=== PATIENT | female | born 2000 | race African-American/Black ===

== ENCOUNTER 2021-01-31 22:41 | Emergency (ER) | payer BC ==
[~2021-01-31] VITALS: Ht 160 cm; Wt 54.9 kg
[2021-02-01 00:18] LABS: ABSOLUTE NEUTROPHILS 2.4 thou/uL (1.4-8.2); BASOPHILS 0.5 % (0.0-2.0); EOSINOPHILS 2.1 % (0.0-3.0); HEMATOCRIT 37.4 % (37.0-47.0); HEMOGLOBIN 11.5 gm/dL (12.0-15.0); LYMPHOCYTES 46.5 % (24.0-44.0); MCH 24.1 pg (26.0-34.0); MCHC 30.8 g/dL (28.0-37.0); MCV 78.1 fL (80.0-100.0); MONOCYTES 10.3 % (1.0-8.0); PLATELET COUNT 269 thou/uL (150-400); POLYS 40.6 % (36.0-66.0); RBC 4.79 mil/uL (4.20-5.00); RDW 14.4 % (10.5-14.5); WBC 5.8 thou/uL (4.0-11.0)
[2021-02-01 00:19] LABS: CALCIUM 8.7 mg/dL (8.5-10.1); CREATININE 0.9 mg/dL (0.6-1.0); POTASSIUM 3.7 mmol/L (3.5-5.1)
[2021-02-01 00:25] LABS: ALBUMIN 3.7 g/dL (3.4-5.0); TOTAL BILIRUBIN 0.2 mg/dL (0.2-1.0); TOTAL PROTEIN 7.3 g/dL (6.4-8.2)
[2021-02-01 00:43] VITALS: BP 108/69
== END 2021-02-01 01:00 | disposition home or self-care (01) ==
LOC: ER 22:41
PROVIDERS: Emergency Medicine
DX: R20.0 Anesthesia of skin (principal); Z86.16 Personal history of COVID-19